=== PATIENT | female | born 1950 | race Two or more races ===

== ENCOUNTER 2024-07-24 21:17 | Inpatient (IN) | payer OTHER ==
[~2024-07-24] VITALS: Ht 152.4 cm; Wt 43.1 kg
--- NOTE | 2024-07-24 21:22 | NUR ---
SE RECIBE PTE ALERTA ACOMPANADA DE FAMILIAR EN AMBULANCIA. LOS CUALES REFIEREN TRAER A PTE POR POSIBLE FX DE CADERA. PTE REFIERE DOLOR EN CADERA LT. SE MIDEN S/V A PTE Y SE UBICA.
[2024-07-24] MEDS ORDERED: FAMOTIDINE/PF 20 MG in 0.9 % SODIUM CHLORIDE 8 ML IV PUSH SCH (21:40)
[2024-07-24] MEDS ORDERED: MORPHINE SULFATE 2 MG/ML CARTRIDGE IV PRN (21:45)
[2024-07-24] MEDS ORDERED: 0.9 % SODIUM CHLORIDE 1,000 ML IV SCH (21:45)
[2024-07-24] MEDS ORDERED: ACETAMINOPHEN 500 MG GEL..CAP PO PRN (21:45)
[2024-07-24] MEDS ORDERED: ENALAPRILAT DIHYDRATE 1.25 MG/ML VIAL IV PRN (21:45)
--- NOTE | 2024-07-24 22:17 | NUR ---
PTE ADMITIDA POR DR. SANTORO. SE COLOCA A PTE EN AREA DE SEC K.
[2024-07-24 22:32] VITALS: BP 126/74; O2SAT 98
[2024-07-24 23:16] LABS: HEMOGLOBIN 12.2 g/dL (12.0-15.00); MEAN CELL VOLUME 84.5 fL (80.00-100.00); MEAN CORPUSCULAR HEMOGLOBIN 28.5 pg (27.00-32.0); MEAN CORPUSCULAR HGB CONC 33.7 g/dl (32.0-36.0); PLATELET COUNT 189 K/uL (150-450); RED BLOOD COUNT 4.27 M/uL (4.00-6.00); RED CELL DISTRIBUTION WIDTH 15.9 % (11.5-14.5)
[2024-07-24 23:25] LABS: INR 1.02; PARTIAL THROMBOPLASTIN TIME 30.5 SECONDS (22.0-34.0); PROTHROMBIN TIME 11.1 SECONDS (9.0-11.5)
[2024-07-24 23:30] LABS: ALBUMIN 3.5 gm/dL (3.4-5.0); BILIRUBIN TOTAL 0.32 mg/dL (0.3-1.2); CALCIUM 8.5 mg/dL (8.5-10.1); CREATININE SERUM 0.66 mg/dL (0.55-1.02); GFR 87.79; GLOBULINA 3.4 G/DL (2.4-3.5); POTASSIUM 3.17 mEq/L (3.5-5.1); TOTAL PROTEIN 6.9 gm/dL (6.4-8.2)
[2024-07-24 23:44] LABS: COL ADP 89 SECONDS (56-102)
[2024-07-24 23:45] LABS: COL EPI 94 SECONDS (82-175)
[2024-07-25 00:19] VITALS: BP 107/56; O2SAT 97
[2024-07-25 00:32] LABS: PH,URINE 7.5 (5.0-8.0); URINE APPEARANCE Clear; URINE BILIRRUBIN Negative (NEGATIVE); URINE BLOOD Negative; URINE COLOR Yellow; URINE GLUCOSE Negative (NEGATIVE); URINE KETONE Negative (NEGATIVE); URINE LEUKOCYTE Negative; URINE NITRATE Negative; URINE PROTEIN Negative (NEGATIVE)
[2024-07-25 00:36] LABS: URINE RBC 5.3 uL (0.0-20.8); URINE WBC 4.3 uL (0.0-23.2)
[2024-07-25 00:38] LABS: URINE CAST 0.15 uL (0.0-1.40); URINE EPITHELIAL CELLS 0.9 uL (0.0-38.8)
[2024-07-25 03:02] VITALS: BP 128/72; O2SAT 98
[2024-07-25 09:38] VITALS: BP 132/63; O2SAT 96
[2024-07-25 12:57] LABS: HEMATOCRIT 37.5 % (36.0-45.00); HEMOGLOBIN 12.9 g/dL (12.0-15.00); MEAN CELL VOLUME 82.4 fL (80.00-100.00); MEAN CORPUSCULAR HEMOGLOBIN 28.2 pg (27.00-32.0); MEAN CORPUSCULAR HGB CONC 34.2 g/dl (32.0-36.0); PLATELET COUNT 193 K/uL (150-450); RED BLOOD COUNT 4.55 M/uL (4.00-6.00); RED CELL DISTRIBUTION WIDTH 15.7 % (11.5-14.5)
[2024-07-25 14:58] LABS: CREATININE SERUM 0.54 mg/dL (0.55-1.02); GFR 110.66; MAGNESIUM 2.1 mg/dL (1.8-2.4); POTASSIUM 4.14 mEq/L (3.5-5.1)
[2024-07-25 16:19] VITALS: BP 123/66
[2024-07-26 01:15] VITALS: BP 137/70; O2SAT 96
[2024-07-26 08:21] VITALS: BP 122/69; O2SAT 99
[2024-07-26 11:22] LABS: HEMATOCRIT 37.4 % (36.0-45.00); HEMOGLOBIN 12.6 g/dL (12.0-15.00); MEAN CELL VOLUME 84.1 fL (80.00-100.00); MEAN CORPUSCULAR HEMOGLOBIN 28.3 pg (27.00-32.0); MEAN CORPUSCULAR HGB CONC 33.6 g/dl (32.0-36.0); PLATELET COUNT 217 K/uL (150-450); RED BLOOD COUNT 4.44 M/uL (4.00-6.00); RED CELL DISTRIBUTION WIDTH 15.8 % (11.5-14.5)
[2024-07-26 16:33] VITALS: BP 120/60
[2024-07-27 01:43] VITALS: BP 128/70; O2SAT 97
[2024-07-27] MEDS ORDERED: VANCOMYCIN HCL 1,000 MG VIAL IR ONE (07:00)
[2024-07-27] MEDS ORDERED: TRANEXAMIC ACID 100MG/1ML (1000MG) AMPUL IV ONE ×2 (07:00)
[2024-07-27] MEDS ORDERED: CEFAZOLIN SODIUM 1,000 MG VIAL IV SCH ×2 (07:40→17:00)
[2024-07-27] MEDS ORDERED: PANTOPRAZOLE SODIUM 40 MG TABLET.DR PO SCH (09:09)
[2024-07-27] MEDS ORDERED: MEPERIDINE HCL/PF 25 MG/ML VIAL IM PRN (09:15)
[2024-07-27] MEDS ORDERED: PROMETHAZINE HCL 25 MG/ML AMPUL IM PRN (09:15)
[2024-07-27] MEDS ORDERED: ONDANSETRON 4 MG TAB.RAPDIS PO PRN (09:15)
[2024-07-27] MEDS ORDERED: ONDANSETRON HCL 2 MG/ML VIAL IV PRN (09:15)
[2024-07-27] MEDS ORDERED: SODIUM CHLORIDE 0.45 % 1,000 ML IV SCH (09:15)
[2024-07-27 16:51] VITALS: BP 129/63
[2024-07-27 17:10] VITALS: BP 127/69
[2024-07-27] MEDS ORDERED: FAMOTIDINE/PF 20 MG in 0.9 % SODIUM CHLORIDE 8 ML IV PUSH SCH (21:00)
[2024-07-28] VITALS: BP 134/67
[2024-07-28 07:45] LABS: HEMOGLOBIN 11.8 g/dL (12.0-15.00); MEAN CELL VOLUME 83.2 fL (80.00-100.00); MEAN CORPUSCULAR HEMOGLOBIN 28.8 pg (27.00-32.0); MEAN CORPUSCULAR HGB CONC 34.7 g/dl (32.0-36.0); PLATELET COUNT 213 K/uL (150-450); RED BLOOD COUNT 4.09 M/uL (4.00-6.00); RED CELL DISTRIBUTION WIDTH 14.8 % (11.5-14.5)
[2024-07-28 08:38] VITALS: BP 127/75; O2SAT 96
[2024-07-28] MEDS ORDERED: RIVAROXABAN 10 MG TAB PO SCH (09:00)
[2024-07-28 17:00] VITALS: BP 125/69; O2SAT 95
[2024-07-29 00:29] VITALS: BP 113/71; O2SAT 96
[2024-07-29 07:45] LABS: HEMATOCRIT 35.2 % (36.0-45.00); HEMOGLOBIN 12.1 g/dL (12.0-15.00); MEAN CELL VOLUME 82.4 fL (80.00-100.00); MEAN CORPUSCULAR HEMOGLOBIN 28.3 pg (27.00-32.0); MEAN CORPUSCULAR HGB CONC 34.3 g/dl (32.0-36.0); PLATELET COUNT 211 K/uL (150-450); RED BLOOD COUNT 4.27 M/uL (4.00-6.00); RED CELL DISTRIBUTION WIDTH 15.2 % (11.5-14.5)
[2024-07-29 09:09] VITALS: BP 117/69; O2SAT 96
[2024-07-29 16:00] VITALS: BP 138/85; O2SAT 95
[2024-07-30 00:44] VITALS: BP 117/83; O2SAT 96
[2024-07-30 08:26] VITALS: BP 123/80; O2SAT 97
[2024-07-30 15:53] VITALS: BP 125/83
[2024-07-31 01:16] VITALS: BP 117/80; O2SAT 99
[2024-07-31 08:29] VITALS: BP 121/70
== END 2024-07-31 15:02 | disposition home or self-care (01) | DRG 482 ==
LOC: ER 21:17 → MEDI 21:59
PROVIDERS: General Practice; Internal Medicine; Orthopaedic Surgery; ADMIT Internal Medicine; ATTEND Internal Medicine
PROC: BQ2SZZZ Computerized Tomography (CT Scan) of Left Lower Extremity (ICD-10-PCS; 2024-07-24)
PROC: 0QS704Z Reposition Left Upper Femur with Internal Fixation Device, Open Approach (ICD-10-PCS; principal; 2024-07-27 07:15)
DX: S72.002A Fracture of unspecified part of neck of left femur, initial encounter for closed fracture (principal); E87.6 Hypokalemia; W19.XXXA Unspecified fall, initial encounter; Y93.01 Activity, walking, marching and hiking; Y92.9 Unspecified place or not applicable

== ENCOUNTER 2024-08-22 09:51 | Outpatient (CLI) | payer OTHER | END 2024-08-22 10:03 | disposition home or self-care (01) | LOC: RAD 09:51 | PROVIDERS: ATTEND Orthopaedic Surgery | DX: M25.552 Pain in left hip (principal) ==

== ENCOUNTER 2024-09-25 09:22 | Outpatient (CLI) | payer OTHER ==
[2024-09-25 11:06] LABS: BILIRUBIN TOTAL 0.51 mg/dL (0.3-1.2); CALCIUM 9.5 mg/dL (8.5-10.1); CREATININE SERUM 0.63 mg/dL (0.55-1.02); GFR 92.63; GLOBULINA 3.2 G/DL (2.4-3.5); MAGNESIUM 2.2 mg/dL (1.8-2.4); PHOSPHOROUS 2.8 mg/dL (2.5-4.9); POTASSIUM 4.48 mEq/L (3.5-5.1); TOTAL PROTEIN 7.2 gm/dL (6.4-8.2)
== END 2024-09-25 09:33 | disposition home or self-care (01) ==
LOC: LAB 09:22
PROVIDERS: ATTEND Orthopaedic Surgery
DX: E55.9 Vitamin D deficiency, unspecified (principal); M85.9 Disorder of bone density and structure, unspecified; E56.1 Deficiency of vitamin K; E21.3 Hyperparathyroidism, unspecified; E88.89 Other specified metabolic disorders; M81.8 Other osteoporosis without current pathological fracture